=== PATIENT | male | born 1970 | race Caucasian/White ===

== ENCOUNTER 2016-10-28 23:26 | Emergency (ER) | payer MEDICARE, OTHER, MEDICAID ==
[2016-10-29 00:12] VITALS: TEMP 96.2
[2016-10-29 00:25] VITALS: RESP 16
[2016-10-29 00:26] VITALS: BP 158/85; PULSE 71; O2SAT 99
== END 2016-10-29 00:26 | disposition home or self-care (01) | DRG 156 ==
LOC: ED 23:26
DX: T17.228A Food in pharynx causing other injury, initial encounter (principal)
CPT/HCPCS: 99282

== ENCOUNTER 2017-04-05 10:39 | Outpatient (CLI) | payer MEDICARE, OTHER, MEDICAID ==
[2016-10-29 00:26] VITALS: O2SAT 99
== END 2017-04-05 10:40 | disposition home or self-care (01) | DRG 556 ==
LOC: CONVCARE 10:39
PROVIDERS: ATTEND Orthopaedic Surgery
DX: M79.672 Pain in left foot (principal); M77.52 Other enthesopathy of left foot and ankle; M72.2 Plantar fascial fibromatosis
CPT/HCPCS: 73650

== ENCOUNTER 2017-06-24 16:04 | Emergency (ER) | payer MEDICARE, OTHER, MEDICAID ==
[2017-06-24 16:05] VITALS: O2SAT 99
[2017-06-24 16:43] VITALS: BP 143/91; PULSE 77; RESP 18; TEMP 98.4
== END 2017-06-24 17:02 | disposition left against medical advice (07) | DRG 951 ==
LOC: ED 16:04
DX: Z53.9 Procedure and treatment not carried out, unspecified reason (principal)
CPT/HCPCS: 99282